=== PATIENT | male | born 1965 | race Caucasian/White ===

== ENCOUNTER 2021-02-01 07:40 | Emergency (ER) | payer MEDICAID, MEDICARE ==
[~2021-02-01] VITALS: Ht 160 cm; Wt 92.3 kg
[2021-02-01] MEDS ORDERED: DILT120C78 PO (07:57)
[2021-02-01] MEDS ORDERED: WARF-18 PO (07:57)
[2021-02-01] MEDS ORDERED: ATOR1TAB21 PO (07:57)
[2021-02-01 09:10] LABS: HEMATOCRIT 41.7 % (42.0-52.0); HEMOGLOBIN 13.9 g/dl (13.5-17.5); MEAN CORPUSCULAR HEMOGLOBIN 28.1 pg (27.0-33.0); MEAN CORPUSCULAR HGB CONC 33.3 g/dl (32.0-36.5); MEAN CORPUSCULAR VOLUME 84.2 fl (80.0-96.0); PLATELET COUNT, AUTOMATED 176 10^3/uL (150-450); RED BLOOD COUNT 4.95 10^6/uL (4.30-6.10); WHITE BLOOD COUNT 7.9 10^3/uL (4.0-10.0)
[2021-02-01 09:21] LABS: INR 3.02
[2021-02-01 09:35] LABS: CALCIUM LEVEL 9.3 MG/DL (8.5-10.1); CREATININE FOR GFR 1.97 MG/DL (0.70-1.30); GLOMERULAR FILTRATION RATE 37.5 (>56); POTASSIUM SERUM 4.3 MEQ/L (3.5-5.1)
[2021-02-01 10:04] VITALS: BP 172/94
== END 2021-02-01 10:07 | disposition home or self-care (01) ==
LOC: M ED 07:40
DX: T58.91XA Toxic effect of carbon monoxide from unspecified source, accidental (unintentional), initial encounter (principal); I12.9 Hypertensive chronic kidney disease with stage 1 through stage 4 chronic kidney disease, or unspecified chronic kidney disease; Z95.2 Presence of prosthetic heart valve; E78.5 Hyperlipidemia, unspecified; M25.50 Pain in unspecified joint; Z79.01 Long term (current) use of anticoagulants; Z79.899 Other long term (current) drug therapy; Z88.7 Allergy status to serum and vaccine

== ENCOUNTER 2021-05-14 08:14 | Emergency (ER) | payer MEDICARE ==
[~2021-05-14] VITALS: Ht 162.6 cm; Wt 92.5 kg
[~2021-05-14 08:14] MED LIST: ATOR1TAB21 PO; DILT120C78 PO; WARF-18 PO
[2021-05-14 08:15] VITALS: BP 144/81
== END 2021-05-14 09:40 | disposition left against medical advice (07) ==
LOC: M ED 08:14
DX: Z53.21 Procedure and treatment not carried out due to patient leaving prior to being seen by health care provider (principal)

== ENCOUNTER → 2022-06-02 | Outpatient (CLI) | payer MEDICARE | LOC: M RAD 05-08 07:50 | PROVIDERS: ATTEND Internal Medicine Nephrology | DX: N18.32 Chronic kidney disease, stage 3b (principal); I12.9 Hypertensive chronic kidney disease with stage 1 through stage 4 chronic kidney disease, or unspecified chronic kidney disease ==